=== PATIENT | female | born 1965 | race Caucasian/White ===

== ENCOUNTER 2019-04-27 08:43 | Day surgery (SDC) | payer MEDICARE, MEDICAID, SELFPAY ==
[2019-04-26 12:15] VITALS: BMI 23.0
[2019-04-27 09:30] VITALS: BP 158/102; PULSE 98; RESP 16; TEMP 36.3; O2SAT 99; BMI 22.9
[2019-04-27] MEDS: LACTATED RINGERS 1,000 ML 42 ML IV (09:38)
--- NOTE | 2019-04-27 09:54 | PM.PREOP ---
Pre-operative Note Interval Note History & Physical reviewed/Exam performed by Physician: Yes Changes to H&P: No
--- NOTE | 2019-04-27 09:55 | PM.OP.1 ---
Operative Date/Time/Diagnoses Date of procedure: 04/27/19 Time of procedure: 09:55 Pre-op diagnosis: Right second toe pain with retained screw Post-op diagnosis: same Procedure & Clinicians Procedure: Right second toe screw removal Same procedure as scheduled: Yes Indications: Right second toe pain with retained screw. Conservative measures failed to alleviate her pain and she wished to have surgical intervention at this time. Surgeon: Liseth Neri Click Yes if Unassisted: Yes Anesthesia Type: MAC +/- Operative Notes Closure Type: primary Specimen(s): none sent Estimated Blood Loss (mL): 10 Blood products transfused: none Procedure in detail: The patient was brought to the operating room and placed on the operating table in the supine position. Patient is well- padded and appropriately supported. After induction of anesthesia the right second toe was given local anesthesia. Then the foot and ankle were prepped and draped in the usual aseptic manner. Incision was made over the distal tip of the second toe. The incision was deepened through subcutaneous tissues all bleeders were cauterized and ligated as necessary. The screw was seen and some soft tissue was gently moved from the screw head to access it. The screw was removed in total and the tip inspected, no breakage noted. It was passed from the field. The area was irrigated with copious amounts normal sterile saline. Nylon suture used to close the skin. The foot was dressed with a lightly compressive sterile dressing. Patient was then placed in a postoperative shoe and transferred to PACU with vital signs stable. Complications: none Post-operative Condition: stable Disposition: PACU Plan for aftercare: Following a period of postoperative monitoring, the patient be discharged home on written and oral postoperative instructions including keeping the dressing dry and intact, avoiding significant ambulation on the foot, elevating the foot when seated home. DVT prevention techniques have been reviewed. Post op appt has been made for suture removal check.
[2019-04-27] MEDS: CEFAZOLIN 1 GM/50 ML FROZ.PIGGY IV (10:18)
--- NOTE | 2019-04-27 10:32 | SUR.OPER ---
Supine on padded OR bed, head on pillow, arms secured on padded arm boards at <90 degrees abduction, legs uncrossed, safety belt at thigh.
[2019-04-27] MEDS: BUPIVACAINE 0.5% (PF) VIAL 30 ML INJ (10:37)
[2019-04-27] MEDS: LIDOCAINE 2% INJ MDV 20 ML INJ (10:37)
[2019-04-27 11:12] VITALS: BP 152/99; PULSE 86; RESP 16; TEMP 36.6; O2SAT 98
[2019-04-27 11:25] VITALS: BP 162/99; PULSE 76; RESP 15; TEMP 36.3; O2SAT 98
== END 2019-04-27 11:30 | disposition home or self-care (01) ==
LOC: OR 08:45
PROVIDERS: PCP Family Medicine; Visit Provider Podiatrist
PROC: (CPT 20680; principal; 2019-04-27 10:00)
DX: T84.84XA Pain due to internal orthopedic prosthetic devices, implants and grafts, initial encounter (principal); G57.91 Unspecified mononeuropathy of right lower limb; M20.41 Other hammer toe(s) (acquired), right foot
CPT/HCPCS: 20680; J2250; J2704; J3010

== ENCOUNTER 2022-03-11 09:24 | Emergency (ER) | payer MEDICARE, MEDICAID, SELFPAY ==
[2022-03-11] VITALS (22 sets, daily range): BP systolic 132–198; BP diastolic 69–101; PULSE 72–103; RESP 12–24; TEMP 36.3; O2SAT 94–97; BMI 23.0
--- NOTE | 2022-03-11 | DI.US.S_ITS ---
PROCEDURE: US ABDOMEN LIMITED INDICATIONS: EPIGASTRIC PAIN TECHNIQUE: Real-time scanning was performed of the abdominal and retroperitoneal organs, with image documentation. COMPARISON: None. FINDINGS: Liver: Liver demonstrates increased size with increased echogenicity. Gallbladder: Status post cholecystectomy. Biliary ducts: Intrahepatic bile ducts are non-dilated. Extrahepatic bile duct caliber measures 11 mm. A nonshadowing hyperechoic focus is noted in the distal common duct. It is possible this is a small stone but is nonobstructing. Normal is 6-7 mm or less in diameter, or 10 mm or less post-cholecystectomy. Pancreas: Visualized portions of the pancreas are sonographically normal. Spleen: Spleen is normal in size and homogeneous in echotexture. IMPRESSION: 1. Hepatic steatosis and hepatomegaly. 2. Status post cholecystectomy. 3. A nonshadowing hyperechoic focus in the distal common bile duct is questionably a small stone but does not cause obstruction. Dictated by: Gil Steinberg M.D. on 03/11/2022 at 11:14 Approved by: Gil Steinberg M.D. on 03/11/2022 at 11:17
--- NOTE | 2022-03-11 09:31 | ED_ITS ---
HPI - Abdominal Pain General Chief Complaint: Abdominal Pain Stated Complaint: Abd pain x 3 days Time Seen by Provider: 03/11/22 09:30 History of Present Illness HPI narrative: Patient is a 56-year-old female history of alcohol abuse, pancreatitis hypertension chronic back pain presenting today with 3-4 days epigastric pain. She states she feels nauseous she has been vomiting. She denies any diarrhea. No fever chills. She says pain goes right through to her back. She denies any chest pain or shortness of breath. Related Data Home Medications Medication Instructions Recorded Confirmed ibuprofen 200 mg tablet 200 mg PO PRN PRN Pain (Scale 03/23/17 04/27/19 Score 1-3) ##0 naproxen sodium 220 mg tablet 2 tab PO QDAYP PRN Pain (Scale 04/13/17 04/27/19 (Aleve) Score 1-3) ##0 nitroglycerin 0.4 mg sublingual 0.4 mg sublingual PRN PRN Chest 04/13/17 04/27/19 tablet (Nitrostat) Pain ##0 omeprazole 20 mg capsule,delayed 20 mg PO QDAY ##0 04/13/17 release gabapentin 600 mg tablet 600 mg PO TID 04/27/19 04/27/19 lisinopril 10 mg tablet 10 mg PO DAILY 04/27/19 04/27/19 multivitamin-ferrous 1 tab PO DAILY 04/27/19 04/27/19 fumarate-folic acid 18 mg-400 mcg tablet (Multi-Day with Iron) Previous Rx's Medication Instructions Recorded hydrocodone 5 mg-acetaminophen 325 1 tab PO Q6H PRN pain #10 tabs 03/11/22 mg tablet omeprazole 20 mg capsule,delayed 20 mg PO DAILY #30 caps 03/11/22 release ondansetron 4 mg disintegrating 4 mg PO Q8H PRN nausea and 03/11/22 tablet vomiting #10 tabs Allergies Allergy/AdvReac Type Severity Reaction Status Date / Time No Known Drug Allergies Allergy Verified 04/27/19 09:25 Review of Systems Review of Systems Narrative: GENERAL: Denies chills, fatigue, malaise, fever, sweats, travel HEENT: Denies sinus pain, ear pain, sore throat, difficulty swallowing, neck p ain RESPIRATORY: Denies dyspnea, cough, wheezing, hemoptysis, sputum. CARDIOVASCULAR: Denies chest pain, palpitations, orthopnea, edema GASTROINTESTINAL: See HPI : Denies dysuria, frequency, incontinence, hematuria, urinary retention, flank pain. MUSCULOSKELETAL: Denies weakness, joint pain, or bony pain SKIN: No rash, no erythema, no pruritus NEUROLOGIC: Denies weakness, dizziness, headache, numbness, change in speech, confusion PSYCHIATRIC: No concerning psychosocial issues. 12 point review of systems is negative except for those stated above and HPI Patient History Medical History (Updated 03/11/22 @ 16:17 by Yessica Acharya DO) Alcoholic hepatitis Anxiety C. difficile colitis (~2016) Chest pain Chronic back pain Current every day smoker Depression Encephalopathy (~2015) Episode of syncope (~2015) ETOH abuse GERD (gastroesophageal reflux disease) Hepatitis C HTN (hypertension) Hyponatremia Incontinence Migraines Miscarriage Normocytic anemia Numbness and tingling Pancreatitis Seizures Thrombocytopenia Surgical History (Updated 09/26/20 @ 08:48 by [employer] [facility]) History of back surgery History of lumbar fusion (04/19/17) History of right oophorectomy Hx of appendectomy Hx of cholecystectomy Hx of hernia repair Hx of laminectomy (~2015) S/P insertion of spinal cord stimulator Social History household members: significant other Smoking Status: Current every day smoker alcohol intake: current Smoking Status: Current every day smoker Exam Initial Vital Signs Initial Vital Signs: Vital Signs Pulse Rate 103 H 03/11/22 09:34 Pulse Oximetry 96 03/11/22 09:34 GENERAL: 56-year-old female appears older than stated age and in discomfort HEENT: Head atraumatic,EOMI, pupils reactive, face symmetric, moist mucous membranes CARDIOVASCULAR: Regular rate and rhythm without murmurs, rubs or gallops. RESPIRATORY: Breath sounds equal bilaterally, no wheezes rales or rhonchi. ABDOMEN: Soft, tender epigastric region and right upper quadrant EXTREMITIES: Normal range of motion, no clubbing or edema. Neurovascularly intact NEUROLOGICAL: Alert and oriented x4.Normal gait and speech. SKIN: Warm, dry, no laceration, no petechiae, no rashes or lesions. Course Orders Ordered: ED Orders 03/11/22 09:37 EKG-12 Lead Stat 03/11/22 09:58 Complete Blood Count AUTO DIFF Stat Comprehensive Metabolic Panel Stat ETOH [Ethanol (ETOH)] Stat Lipase Stat Partial Thromboplastin Time Stat Prothrombin Time INR Stat Troponin & CK Cardiac Panel Stat 03/11/22 10:02 COVID19 -Nasal RAPID/Pre-Proc Stat 03/11/22 11:58 CT abdomen pelvis w con Stat 03/11/22 12:30 Urine Microscopic Stat Discontinued Medications Hydromorphone HCl (Hydromorphone 0.5 Mg Inj) 0.5 mg IV NOW ONE Stop: 03/11/22 09:45 Last Admin: 03/11/22 09:51 Dose: 0.5 mg Documented By: BS Hydromorphone HCl (Hydromorphone 0.5 Mg Inj) 0.5 mg IV NOW ONE Stop: 03/11/22 11:50 Last Admin: 03/11/22 11:57 Dose: 0.5 mg Documented By: SANAZ Sodium Chloride (Normal Saline 0.9%) 1,000 mls @ 1,000 mls/hr IV BOLUS ONE Stop: 03/11/22 10:43 Last Infusion: 03/11/22 10:53 Dose: 0 mls/hr Documented By: Admin: 03/11/22 09:51 Dose: 1,000 mls/hr Documented By: BS POTASSIUM CHLORIDE IN WATER (Potassium Cl 10 Meq/100 Ml Tamia) 10 meq in 100 mls @ 100 mls/hr IV Q1H JOHN Stop: 03/11/22 14:29 Last Infusion: 03/11/22 15:57 Dose: 0 mls/hr Documented By: Admin: 03/11/22 14:44 Dose: 100 mls/hr Documented By: Infusion: 03/11/22 14:29 Dose: 100 mls/hr Documented By: Admin: 03/11/22 13:29 Dose: 100 mls/hr Documented By: Infusion: 03/11/22 12:58 Dose: 100 mls/hr Documented By: Admin: 03/11/22 11:58 Dose: 100 mls/hr Documented By: Infusion: 03/11/22 11:55 Dose: 100 mls/hr Documented By: Admin: 03/11/22 10:55 Dose: 100 mls/hr Documented By: BS Pantoprazole Sodium (Pantoprazole 40 Mg Vial) 40 mg IV NOW ONE Stop: 03/11/22 09:41 Last Admin: 03/11/22 09:51 Dose: 40 mg Documented By: BS Vital Signs Vital signs: Vital Signs - 8 hr 03/11/22 10:30 03/11/22 10:31 03/11/22 10:31 Pulse Rate 87 80 Respiratory Rate Blood Pressure 132/69 Pulse Oximetry 95 96 03/11/22 11:00 03/11/22 11:01 03/11/22 11:01 Pulse Rate 89 86 Respiratory Rate 22 24 Blood Pressure 148/77 H Pulse Oximetry 95 96 03/11/22 11:30 03/11/22 11:30 03/11/22 12:00 Pulse Rate 85 89 Respiratory Rate 24 15 Blood Pressure 137/86 Pulse Oximetry 96 96 03/11/22 12:04 03/11/22 12:04 03/11/22 12:30 Pulse Rate 81 Respiratory Rate 14 Blood Pressure 139/80 172/81 H Pulse Oximetry 95 03/11/22 12:30 03/11/22 13:00 03/11/22 13:16 Pulse Rate 79 74 Respiratory Rate 18 12 Blood Pressure 152/80 H Pulse Oximetry 97 96 03/11/22 13:16 03/11/22 13:30 03/11/22 13:30 Pulse Rate 72 75 Respiratory Rate 20 14 Blood Pressure 139/81 Pulse Oximetry 96 94 03/11/22 14:00 03/11/22 14:01 03/11/22 14:01 Pulse Rate Respiratory Rate Blood Pressure 198/101 H Pulse Oximetry 94 95 03/11/22 14:16 03/11/22 14:16 03/11/22 14:30 Pulse Rate 76 Respiratory Rate Blood Pressure 165/90 H 169/82 H Pulse Oximetry 96 03/11/22 14:30 03/11/22 15:00 03/11/22 15:00 Pulse Rate 88 88 Respiratory Rate Blood Pressure 156/97 H Pulse Oximetry 96 95 03/11/22 15:30 03/11/22 16:00 Pulse Rate 89 89 Respiratory Rate 24 24 Blood Pressure 156/98 H Pulse Oximetry 96 MDM - Abdominal Pain Lab Data Result diagrams: 03/11/22 09:58 03/11/22 09:58 Labs: Lab Results 03/11/22 03/11/22 03/11/22 Range/Units 09:58 09:58 09:58 WBC 7.5 (4.5-11.0) X10^3/uL RBC 3.26 L (4.0-5.2) X10^6/uL Hgb 10.5 L (12.0-16.0) g/dL Hct 30.8 L (36-46) % MCV 94.3 (80-100) fL MCH 32.3 (26-34) PG MCHC 34.3 (30-36) % RDW 15.4 H (11.6-14.8) % Plt Count 219 (150-400) X10^3/uL Neut % (Auto) 62.5 (50-75) % Lymph % (Auto) 24.0 L (25-40) % [place] % (Auto) 11.4 (3-14) % Eos % (Auto) 1.4 L (2-4) % Baso % (Auto) 0.7 (0-2) % Neut # (Auto) 4700 (3465-0645) /uL Lymph # (Auto) 1800 (4933-5531) /uL [place] # (Auto) 900 (0-900) /uL Eos # (Auto) 100 (0-450) /uL Baso # (Auto) 100 (0-100) /uL PT 10.1 (10.1-12.7) SECONDS INR 0.9 (0.9-1.3) APTT 33 (26.4-36.2) SECONDS Sodium 138 (137-145) mmol/L Potassium 2.7 L* (3.4-5.1) mmol/L Chloride 100 (98-107) mmol/L Carbon Dioxide 28 (22-32) mmol/L BUN 11 (7-17) mg/dL Creatinine 0.90 (0.52-1.04) mg/dL Estimated GFR > 60 (>60) mL/min BUN/Creatinine Ratio 12.2 (6-22) Glucose 125 H (70-100) mg/dL Calcium 9.3 (8.4-10.2) mg/dL Total Bilirubin 0.1 L (0.2-1.3) mg/dL AST 180 H (14-36) IU/L ALT 79 H (<35) IU/L Alkaline Phosphatase 74 (38-126) U/L Total Creatine Kinase (30-135) U/L CK-MB (CK-2) CK-MB (CK-2) Rel Index Troponin I (0.01-0.034) ng/mL Total Protein 6.8 (6.3-8.2) g/dL Albumin 4.2 (3.5-5.0) g/dL Globulin 2.6 (1.7-4.1) g/dL Albumin/Globulin Ratio 1.6 (1.0-2.8) Lipase 66 (23-300) U/L Urine RBC (0-5/HPF) Urine WBC (0-5/HPF) Ur Squamous Epith Cells (0-5/HPF) Urine Bacteria (None) Ur Culture Indicated? Ethyl Alcohol ( - 10) mg/dL SARS-CoV-2 (PCR) (Negative) 03/11/22 03/11/22 03/11/22 Range/Units 09:58 10:02 12:30 WBC (4.5-11.0) X10^3/uL RBC (4.0-5.2) X10^6/uL Hgb (12.0-16.0) g/dL Hct (36-46) % MCV (80-100) fL MCH (26-34) PG MCHC (30-36) % RDW (11.6-14.8) % Plt Count (150-400) X10^3/uL Neut % (Auto) (50-75) % Lymph % (Auto) (25-40) % [place] % (Auto) (3-14) % Eos % (Auto) (2-4) % Baso % (Auto) (0-2) % Neut # (Auto) (7800-3331) /uL Lymph # (Auto) (6308-0647) /uL [place] # (Auto) (0-900) /uL Eos # (Auto) (0-450) /uL Baso # (Auto) (0-100) /uL PT (10.1-12.7) SECONDS INR (0.9-1.3) APTT (26.4-36.2) SECONDS Sodium (137-145) mmol/L Potassium (3.4-5.1) mmol/L Chloride (98-107) mmol/L Carbon Dioxide (22-32) mmol/L BUN (7-17) mg/dL Creatinine (0.52-1.04) mg/dL Estimated GFR (>60) mL/min BUN/Creatinine Ratio (6-22) Glucose (70-100) mg/dL Calcium (8.4-10.2) mg/dL Total Bilirubin (0.2-1.3) mg/dL AST (14-36) IU/L ALT (<35) IU/L Alkaline Phosphatase (38-126) U/L Total Creatine Kinase 45 (30-135) U/L CK-MB (CK-2) TNP CK-MB (CK-2) Rel Index TNP Troponin I < 0.012 (0.01-0.034) ng/mL Total Protein (6.3-8.2) g/dL Albumin (3.5-5.0) g/dL Globulin (1.7-4.1) g/dL Albumin/Globulin Ratio (1.0-2.8) Lipase (23-300) U/L Urine RBC 0-1/hpf (0-5/HPF) Urine WBC None seen (0-5/HPF) Ur Squamous Epith Cells 0-1 /hpf (0-5/HPF) Urine Bacteria None seen (None) Ur Culture Indicated? Cult not indicated Ethyl Alcohol 200 H ( - 10) mg/dL SARS-CoV-2 (PCR) Negative (Negative) Point of care testing: Urine Dip Bedside Urine Glucose Negative Bedside Urine Bilirubin - Negative Bedside Urine Ketone - Negative Urine Specific [place] 1.010 Bedside Urine Occult Blood ++ Bedside Urine pH 6.0 Bedside Urine Protein - Negative Bedside Urine Urobilinogen - Negative Bedside Urine Nitrite - Negative Bedside Urine Leukocytes - Negative Esterase Imaging Data US - abdomen: Radiologist's Impression: Signed Patient: Patricia Rincon MR#: [id number] : 1965 Acct:[id number] Age/Sex: 56 / F Date of Service: 03/11/22 Loc: ED Accession Number: [id number] ?? Procedure: US abdomen limited Ordering Provider: Yessica Acharya D.O. PROCEDURE:? US ABDOMEN LIMITED ? INDICATIONS:? EPIGASTRIC PAIN ? TECHNIQUE:? Real-time scanning was performed of the abdominal and retroperitoneal organs, with image documentation.? ? COMPARISON:? None. ? FINDINGS:? ? Liver:? Liver demonstrates increased size with increased echogenicity. ? Gallbladder:? Status post cholecystectomy.? ? Biliary ducts:? Intrahepatic bile ducts are non-dilated.? Extrahepatic bile duct caliber measures 11 mm.? A nonshadowing hyperechoic focus is noted in the distal common duct.? It is possible this is a small stone but is nonobstructing.? Normal is 6-7 mm or less in diameter, or 10 mm or less post-cholecystectomy.? ? Pancreas:? Visualized portions of the pancreas are sonographically normal.? ? Spleen:? Spleen is normal in size and homogeneous in echotexture.? ? IMPRESSION:? 1. Hepatic steatosis and hepatomegaly. 2. Status post cholecystectomy. 3. A nonshadowing hyperechoic focus in the distal common bile duct is questionably a small stone but does not cause obstruction.? Dictated by: Gil Steinberg M.D. on 03/11/2022 at 11:14 ? ? Approved by: Gil Steinberg M.D. on 03/11/2022 at 11:17 ? CT scan - abdomen/pelvis: Radiologist's Impression: [address] [place] [address] CT Scan Report Signed Patient: Patricia Rincon MR#: [id number] : 1965 Acct:[id number] Age/Sex: 56 / F Date of Service: 03/11/22 Loc: ED Accession Number: [id number] ?? Procedure: CT abdomen pelvis w con Ordering Provider: Yessica Acharya D.O. PROCEDURE:? CT ABDOMEN PELVIS W CON ? INDICATIONS:? severe pain probable CBD stone ? TECHNIQUE:? After the administration of oral and intravenous contrast, axial sections were acquired from the lung bases to the pubic symphysis.? Coronal and sagittal reformats were performed.? For radiation dose reduction, the following was used:? automated exposure control, adjustment of mA and/or kV according to patient size.? ? COMPARISON:[facility], US, US ABDOMEN LIMITED, 01/09/2021, 7:51.? [facility], CT, CT ABDOMEN PELVIS WITH CONTRAST, 04/13/2020, 11:09.? [facility], CT, CT ANGIO CHEST PE, 04/05/2021, 21:59. ? FINDINGS: ? Image quality:? Excellent.? ? Lung bases:? Lung bases are clear.? Heart size is normal. ? Solid organs:? Liver:? The liver has no mass or intrahepatic biliary ductal dilatation.? Liver density is decreased consistent with hepatic steatosis.? The portal vein and hepatic veins are patent. Biliary: Status post cholecystectomy.? The common bile duct measures 1.2 cm, this is unchanged compared to a remote ultrasound on 01/09/2021 when it measured 1.35 cm.? No gallstone is identified within the common bile duct.? Pancreas: The pancreas has no mass or ductal dilatation. There is no surrounding inflammation. Spleen: Normal size. There are no masses. Adrenals: No hypertrophy or nodules. Kidneys: No obstructive calculus or hydronephrosis.? No solid mass. No cystic mass. ? Peritoneum and bowel:? The distal esophagus and stomach are normal.? The small bowel has a normal caliber and appearance. The terminal ileum is normal. The large bowel has a normal caliber and appearance.? The appendix is not visualized, status post appendectomy. ?No free fluid or air.? ? Nodes and vessels:? No retroperitoneal or mesenteric adenopathy by size criteria.? The aorta has atherosclerosis with no aneurysmal dilatation.? ? Miscellaneous:? No abdominal wall mass or hernia. ? PELVIS:? Genitourinary:? The bladder is empty. ? Bones:? No suspicious bony lesions.? No vertebral body compression fractures.? ? IMPRESSION: 1. No CT evidence of cholelithiasis.? Additionally the common bile duct diameter is unchanged compared to a remote ultrasound on 01/09/2021 and there is no intrahepatic biliary ductal dilatation or pancreatic ductal dilatation. 2. Hepatic steatosis.? ? Dictated by: Gil Steinberg M.D. on 03/11/2022 at 12:53 ? ? Approved by: Gil Steinberg M.D. on 03/11/2022 at 12:59 ? ECG Data Interpretation: Normal sinus rhythm rate 89 IL interval 168 QRS 94 QTC 469 MDM Narrative Medical decision making narrative: Patient has severe epigastric pain, she is post cholecystectomy and is found to have a non obstructive common bile duct stone. Blood work is actually overall reassuring no elevated bilirubin or LFTs. She is found to have alcohol level of 200 patient adamantly denies that she had anything to drink today she did wash her mouth out with with drain she denies drinking any of it. States that she did drink alcohol yesterday. She clearly has been vomiting for multiple days her potassium is low. It is replaced. He is tolerating oral fluid and food. Discussion with Dr. Zapien, who states no need for any sort of surgery at this time recommend outpatient follow-up. I suspect that the nonocclusive CBD stone is probably the cause of her pain whenever is moving. She is not shaky or having tremors or signs of alcohol withdrawal. I suspect that she did drink alcohol although she denies it. A level is 200 Discharge Plan Departure Patient Disposition: Home Clinical Impression: Gastritis, Choledocholithiasis, Acute hypokalemia Instructions: DI for Gallstones, DI for Gastritis Activity Restrictions/Additional Instructions: *You have been diagnosed with gastritis, common bile duct stone, low potassium *What to do: At this time you have a call a bile duct stone which is not causing obstruction but may be contributing to your pain. You will need follow- up with surgery and GI. Increase fluid intake as tolerated. Take nausea medication as directed *Continue to take medications as directed Zofran 4 mg a every 8 hours if needed for nausea vomiting [place] 1 tablet every 6 hours if needed for severe pain *Follow up with your primary care provider in 2-3 days or call [phone] *Return to ER if you should have increase in pain, persistent vomiting, fever or any new, worsening or concerning symptoms CONTROLLED SUBSTANCE DISCHARGE (Narcotoic/benzodiazepine/Flexeril/Phenergan) 1. You have been prescribed narcotic medications, it does have acetaminophen/Tylenol/paracetamol in it, DO NOT TAKE MORE THAN 4,00mg in 24 hours of Tylenol. TRAMADOL DOES NOT CONTAIN TYLENOL 2. Please understand that we cannot provide further refills of narcotics, benzodiazepines or controlled substances through the ED and her pain management will need to be through your provider. 3. While on these medications you cannot drive or operate heavy machinery. 4. You cannot sign legal documents or perform any duties such as this. 5. As long as you're taking opiate pain medications he should also be taking a stool softener such as Colace, Dulcolax, MiraLAX or prune juice, to help avoid constipation. Prescriptions: New hydrocodone-acetaminophen 5-325 mg tablet 1 tab PO Q6H PRN (Reason: pain) Qty: 10 0RF ondansetron 4 mg tablet,disintegrating 4 mg PO Q8H PRN (Reason: nausea and vomiting) Qty: 10 0RF omeprazole 20 mg capsule,delayed release(DR/EC) 20 mg PO DAILY Qty: 30 0RF No Action ibuprofen 200 MG tablet 200 mg PO PRN PRN (Reason: Pain (Scale Score 1-3)) Qty: 0 omeprazole 20 MG capsule,delayed release(DR/EC) 20 mg PO QDAY Qty: 0 naproxen sodium [Aleve] 220 MG tablet 2 tab PO QDAYP PRN (Reason: Pain (Scale Score 1-3)) Qty: 0 nitroglycerin [Nitrostat] 0.4 MG tablet, sublingual 0.4 mg Sublingual PRN PRN (Reason: Chest Pain) Qty: 0 Label Comments: pt reports has never had to use it at this time gabapentin 600 mg Tablet 600 mg PO TID lisinopril 10 mg Tablet 10 mg PO DAILY Multi-Day with Iron 18-400 mg-mcg Tablet 1 tab PO DAILY Referrals: Leonie Perez DO [Primary Care Provider] - Visit Report Forms: Patient Portal/API
[2022-03-11] MEDS: SODIUM CHLORIDE 0.9% 1,000 ML 1000 ML IV (09:51)
[2022-03-11] MEDS: PANTOPRAZOLE 40 MG VIAL IV (09:51)
[2022-03-11] MEDS: HYDROMORPHONE 0.5 MG INJ IV ×2 (09:51→11:57)
[2022-03-11 10:07] LABS: Add Manual Diff / Slide Review NO; Basophils Absolute Auto 100 /uL (0-100); Basophils Percent Auto 0.7 % (0-2); Eosinophils Absolute Auto 100 /uL (0-450); Eosinophils Percent Auto 1.4 % (2-4); Hematocrit 30.8 % (36-46); Hemoglobin 10.5 g/dL (12.0-16.0); Lymphocytes Absolute Auto 1800 /uL (1100-4500); Mean Corpuscular HGB Conc 34.3 % (30-36); Mean Corpuscular Hemoglobin 32.3 PG (26-34); Mean Corpuscular Volume 94.3 fL (80-100); Monocytes Absolute Auto 900 /uL (0-900); Monocytes Percent Auto 11.4 % (3-14); Neutrophils Absolute Auto 4700 /uL (1500-7000); Neutrophils Percent Auto 62.5 % (50-75); Platelet Count 219 X10^3/uL (150-400); Red Blood Cell Count 3.26 X10^6/uL (4.0-5.2); Red Cell Distribution Width 15.4 % (11.6-14.8); White Blood Cell Count 7.5 X10^3/uL (4.5-11.0)
[2022-03-11 10:17] LABS: INR 0.9 (0.9-1.3); Prothrombin Time 10.1 SECONDS (10.1-12.7)
[2022-03-11 10:20] LABS: PTT Partial Thromboplastin Tim 33 SECONDS (26.4-36.2)
[2022-03-11 10:22] LABS: Alanine Aminotransferase 79 IU/L (<35); Albumin 4.2 g/dL (3.5-5.0); Albumin Globulin Ratio 1.6 (1.0-2.8); Alkaline Phosphatase 74 U/L (38-126); Aspartate Aminotransferase 180 IU/L (14-36); BUN Creatinine Ratio 12.2 (6-22); Bilirubin Total 0.1 mg/dL (0.2-1.3); Blood Urea Nitrogen 11 mg/dL (7-17); Calcium 9.3 mg/dL (8.4-10.2); Carbon Dioxide 28 mmol/L (22-32); Chloride 100 mmol/L (98-107); Estimated Glomerular Filt Rate > 60 mL/min (>60); Globulin 2.6 g/dL (1.7-4.1); Glucose 125 mg/dL (70-100); HEMOLYSIS < 15 (0-50); Lipase 66 U/L (23-300); Sodium 138 mmol/L (137-145); Total Protein 6.8 g/dL (6.3-8.2)
[2022-03-11 10:23] LABS: COVID19 -Nasal RAPID Negative (Negative)
[2022-03-11 10:23] LABS: Creatine Kinase 45 U/L (30-135); Ethanol (ETOH) 200 mg/dL
[2022-03-11 10:26] LABS: Potassium 2.7 mmol/L (3.4-5.1)
[2022-03-11 10:34] LABS: Troponin I < 0.012 ng/mL (0.01-0.034)
[2022-03-11] MEDS: POTASSIUM CHLORIDE IN WATER 10 MEQ/100 ML PIGGYBACK 100 MEQ IV ×4 (10:55→14:44)
--- NOTE | 2022-03-11 11:58 | DI.CT.S_ITS ---
PROCEDURE: CT ABDOMEN PELVIS W CON INDICATIONS: severe pain probable CBD stone TECHNIQUE: After the administration of oral and intravenous contrast, axial sections were acquired from the lung bases to the pubic symphysis. Coronal and sagittal reformats were performed. For radiation dose reduction, the following was used: automated exposure control, adjustment of mA and/or kV according to patient size. COMPARISON:[facility], US, US ABDOMEN LIMITED, 01/09/2021, 7:51. [facility], CT, CT ABDOMEN PELVIS WITH CONTRAST, 04/13/2020, 11:09. [facility], CT, CT ANGIO CHEST PE, 04/05/2021, 21:59. FINDINGS: Image quality: Excellent. Lung bases: Lung bases are clear. Heart size is normal. Solid organs: Liver: The liver has no mass or intrahepatic biliary ductal dilatation. Liver density is decreased consistent with hepatic steatosis. The portal vein and hepatic veins are patent. Biliary: Status post cholecystectomy. The common bile duct measures 1.2 cm, this is unchanged compared to a remote ultrasound on 01/09/2021 when it measured 1.35 cm. No gallstone is identified within the common bile duct. Pancreas: The pancreas has no mass or ductal dilatation. There is no surrounding inflammation. Spleen: Normal size. There are no masses. Adrenals: No hypertrophy or nodules. Kidneys: No obstructive calculus or hydronephrosis. No solid mass. No cystic mass. Peritoneum and bowel: The distal esophagus and stomach are normal. The small bowel has a normal caliber and appearance. The terminal ileum is normal. The large bowel has a normal caliber and appearance. The appendix is not visualized, status post appendectomy. No free fluid or air. Nodes and vessels: No retroperitoneal or mesenteric adenopathy by size criteria. The aorta has atherosclerosis with no aneurysmal dilatation. Miscellaneous: No abdominal wall mass or hernia. PELVIS: Genitourinary: The bladder is empty. Bones: No suspicious bony lesions. No vertebral body compression fractures. IMPRESSION: 1. No CT evidence of cholelithiasis. Additionally the common bile duct diameter is unchanged compared to a remote ultrasound on 01/09/2021 and there is no intrahepatic biliary ductal dilatation or pancreatic ductal dilatation. 2. Hepatic steatosis. Dictated by: Gil Steinberg M.D. on 03/11/2022 at 12:53 Approved by: Gil Steinberg M.D. on 03/11/2022 at 12:59
[2022-03-11 13:29] LABS: Bacteria Urine None Seen; Culture Indicated Urine Cult Not Indicated; RBC Urine 0-1/HPF (0-5/HPF); Squamous Epithelial Cell Urine 0-1 /HPF (0-5/HPF); WBC Urine None Seen (0-5/HPF)
== END 2022-03-11 16:22 | disposition home or self-care (01) ==
PROVIDERS: Emergency Provider Emergency Medicine; PCP Family Medicine
DX: K80.50 Calculus of bile duct without cholangitis or cholecystitis without obstruction (principal); E87.6 Hypokalemia; K29.70 Gastritis, unspecified, without bleeding; R11.2 Nausea with vomiting, unspecified; Z20.822 Contact with and (suspected) exposure to COVID-19
CPT/HCPCS: 74177; 76705; 80053; 80320; 81003; 81015; 82550; 83690; 84484; 85025; 85610; 85730; 87635; 93005; 93010; 96361; 96374; 96375; 96376; 99284; C9803; C9113; J1170

== ENCOUNTER 2023-06-14 10:52 | Emergency (ER) | payer MEDICARE, MEDICAID, SELFPAY ==
[2023-06-14 10:57] VITALS: BP 182/105; PULSE 98; RESP 14; TEMP 36.6; O2SAT 99; BMI 21.6
--- NOTE | 2023-06-14 11:20 | DI.RAD.S_ITS ---
PROCEDURE: XR ACUTE ABDOMEN SERIES INDICATIONS: generalized abd pain w/ decreased bm TECHNIQUE: One view chest and two views of the abdomen were acquired. COMPARISON: CT, CT ABDOMEN PELVIS WITH CONTRAST, 08/03/2017, 5:50. [facility], , ABDOMEN ACUTE SERIES, 10/12/2015, 17:42. FINDINGS: Surgical changes and devices: Lumbar fixation changes are present. Chest: Lungs are clear. Heart size is normal. No pleural effusions. No pneumoperitoneum. Abdomen: Bowel gas pattern is nonobstructive. [id number] scattered stool.. No suspicious calcifications. Visualized solid organ contours appear normal. Bones: No suspicious bony lesions. IMPRESSION: Nonobstructive gas pattern with nnzn-al-[id number] stool. Dictated by: Gerri Gorman M.D. on 06/14/2023 at 13:33 Approved by: Gerri Gorman M.D. on 06/14/2023 at 13:33
--- NOTE | 2023-06-14 11:25 | PC.NURSE ---
ambulatory w/ walker to xray w/ tech
--- NOTE | 2023-06-14 11:27 | PC.NURSE ---
lab called to confirm receipt of lab work, per Maria Teresa in lab lab work being processed now
[2023-06-14 11:29] LABS: Add Manual Diff / Slide Review NO; Basophils Absolute Auto 100 /uL (0-100); Basophils Percent Auto 1.4 % (0-2); Eosinophils Absolute Auto 100 /uL (0-450); Eosinophils Percent Auto 1.2 % (2-4); Hematocrit 30.4 % (36-46); Hemoglobin 10.4 g/dL (12.0-16.0); Lymphocytes Absolute Auto 1900 /uL (1100-4500); Lymphocytes Percent Auto 25.6 % (25-40); Mean Corpuscular HGB Conc 34.1 % (30-36); Mean Corpuscular Hemoglobin 34.2 PG (26-34); Mean Corpuscular Volume 100.2 fL (80-100); Monocytes Absolute Auto 700 /uL (0-900); Monocytes Percent Auto 8.9 % (3-14); Neutrophils Absolute Auto 4700 /uL (1500-7000); Neutrophils Percent Auto 62.9 % (50-75); Platelet Count 334 X10^3/uL (150-400); Red Blood Cell Count 3.04 X10^6/uL (4.0-5.2); Red Cell Distribution Width 15.3 % (11.6-14.8); White Blood Cell Count 7.5 X10^3/uL (4.5-11.0)
--- NOTE | 2023-06-14 11:36 | PC.NURSE ---
provider at bedside for eval
[2023-06-14 11:40] VITALS: BP 198/98; PULSE 82; RESP 20; O2SAT 99
[2023-06-14 11:41] LABS: Alanine Aminotransferase 13 IU/L (<35); Albumin 3.7 g/dL (3.5-5.0); Albumin Globulin Ratio 1.3 (1.0-2.8); Alkaline Phosphatase 78 U/L (38-126); Aspartate Aminotransferase 30 IU/L (14-36); Bilirubin Total 0.2 mg/dL (0.2-1.3); Blood Urea Nitrogen 15 mg/dL (7-17); Carbon Dioxide 19 mmol/L (22-32); Chloride 103 mmol/L (98-107); Estimated Glomerular Filt Rate > 60 mL/min (>60); Globulin 2.9 g/dL (1.7-4.1); Glucose 91 mg/dL (70-100); HEMOLYSIS 35 (0-50); Lipase 36 U/L (23-300); Potassium 3.9 mmol/L (3.4-5.1); Sodium 132 mmol/L (137-145); Total Protein 6.6 g/dL (6.3-8.2)
--- NOTE | 2023-06-14 11:41 | PC.NURSE ---
provider notified of pt's current BP. RT at bedside for EKG now.
--- NOTE | 2023-06-14 11:43 | DI.CT.S_ITS ---
PROCEDURE: CT ABDOMEN PELVIS W CON INDICATIONS: Abdominal pain TECHNIQUE: After the administration of IV contrast, axial sections were acquired from the lung bases to the pubic symphysis. Coronal and sagittal reformats were performed. For radiation dose reduction, the following was used: automated exposure control, adjustment of mA and/or kV according to patient size. COMPARISON: [facility], CT, CT ABDOMEN PELVIS W CON, 03/11/2022, 12:41. [facility] Film, CT, CT CHEST ABDOMEN PELVIS WITH CONTRAST, 01/15/2022, 15:22. [facility], CR, XR ACUTE ABDOMEN SERIES, 06/14/2023, 11:25. FINDINGS: Image quality: There is artifact associated with the metallic hardware. Lung bases: Unremarkable. Heart: No significant findings. ABDOMEN: Liver: The left liver appears truncated, as before. Gallbladder: Cholecystectomy. Biliary ducts: Unremarkable. Pancreas: Unremarkable. Spleen: Unremarkable. Adrenal Glands: Unremarkable. Kidneys and Ureters: Unremarkable. Stomach and Bowel: Rectal wall thickening is seen. The more proximal colon is within normal limits. No dilated loops of small bowel are seen. The stomach is decompressed at the time of this study, limiting its evaluation. Peritoneum: No abnormal intraperitoneal fluid. No free air. Ventral Wall: No hernia. Abdominal Nodes: No retroperitoneal or mesenteric adenopathy by size criteria. Vessels: Aorta and inferior vena cava are normal in size. Atherosclerotic calcification is noted. PELVIS: Pelvic Organs: The uterus appears normal for age. No adnexal masses are seen. Bladder: Unremarkable. Pelvic Nodes: No enlarged lymph nodes. Miscellaneous: No inguinal hernias are seen. Bones: Lumbar postoperative and degenerative changes are seen. There is a bone harvesting site seen involving the posterior medial left iliac bone. IMPRESSION: Apparent rectal wall thickening is seen. Differential diagnosis includes artifact from collapse. Additional findings: Truncated appearing liver. Cholecystectomy Lumbar postoperative and degenerative change Dictated by: Casey Garza M.D. on 06/14/2023 at 12:51 Approved by: Casey Garza M.D. on 06/14/2023 at 12:55
--- NOTE | 2023-06-14 11:45 | PC.NURSE ---
pt currently refusing IV line placement.
[2023-06-14] MEDS: MAG HYDROX/ALUMINUM/SIMETH SUS 20 ML, LIDOCAINE VISCOUS 2% 15 ML PO (12:05)
[2023-06-14] MEDS: FAMOTIDINE 20 MG/2 ML VIAL 40 MG IV (12:06)
--- NOTE | 2023-06-14 12:30 | PC.NURSE ---
pt requesting to take her home oxy and gabapentin, per provider okay for pt to take
[2023-06-14 12:40] LABS: Bacteria Urine None Seen; RBC Urine None Seen (0-5/HPF); Squamous Epithelial Cell Urine None Seen (0-5/HPF); WBC Urine None Seen (0-5/HPF)
--- NOTE | 2023-06-14 13:17 | PC.NURSE ---
back from CT without issue
[2023-06-14 13:22] VITALS: BP 179/109; PULSE 74; RESP 18; O2SAT 96
--- NOTE | 2023-06-14 13:54 | ED.ABDPAIN ---
HPI - Abdominal Pain <Tammy Maldonado PA-C - Last Filed: 06/14/23 16:09> General Chief Complaint: Abdominal Pain Stated Complaint: abd pain T-5 Time Seen by Provider: 06/14/23 11:15 Source: patient Mode of arrival: Ambulatory History of Present Illness HPI narrative: 58-year-old female, current smoker with past medical history hypertension, chronic lower back pain, GERD presents to the ED with 5 days of epigastric pain. Patient states that her pain started spontaneously in the epigastric region, is now complaining of generalized abdominal pain. Patient denies fever, chills, nausea, vomiting, chest pain, shortness of breath, diarrhea, dysuria, lightheadedness, dizziness, syncope. Patient does complain of constipation over the past few days, states that she intermittently has constipation due to the medications she takes. Patient does take opioids for chronic back pain. Patient states that she has a history of GERD, however it has never been as severe as this episode. Patient states that her symptoms worsen with food. Patient has tried some [id number]-[id number] antacids with no relief. Patient endorses drinking alcohol, 2 drinks about 3 times a week. Patient smokes about a half a pack of cigarettes daily. Patient endorses smoking weed, denies any other drug use. Patient is status post cholecystectomy, appendectomy. Related Data Home Medications Medication Instructions Recorded Confirmed amlodipine 10 mg tablet 10 mg PO DAILY 06/14/23 06/14/23 ferrous sulfate 325 mg (65 mg 325 mg PO QAM 06/14/23 06/14/23 iron) tablet (FeroSul) gabapentin 600 mg tablet 1,200 mg PO 3XD 06/14/23 06/14/23 hydroxyzine HCl 25 mg tablet 25 mg PO BID PRN itch 06/14/23 06/14/23 indomethacin 25 mg capsule 25 mg PO BID PRN mild pain 06/14/23 06/14/23 magnesium oxide 400 mg (241.3 mg 400 mg PO DAILY 06/14/23 06/14/23 magnesium) tablet oxycodone-acetaminophen 7.5 mg-325 1 tab PO BID PRN moderate pain 06/14/23 06/14/23 mg tablet pantoprazole 40 mg tablet,delayed 40 mg PO BID 06/14/23 06/14/23 release potassium chloride 20 mEq 20 meq PO BID 06/14/23 06/14/23 tablet,extended release(part/cryst) spironolactone 50 mg tablet 50 mg PO DAILY 06/14/23 06/14/23 Previous Rx's Medication Instructions Recorded ondansetron 4 mg disintegrating 4 mg PO Q8H PRN nausea and 03/11/22 tablet vomiting #10 tabs Allergies Allergy/AdvReac Type Severity Reaction Status Date / Time No Known Drug Allergies Allergy Verified 06/14/23 11:06 Review of Systems <Tammy Maldonado PA-C - Last Filed: 06/14/23 16:09> Constitutional Constitutional: Denies chills, Denies fatigue, Denies fever(s), Denies frequent falls, Denies lethargy and Denies weakness Eyes Eyes: Denies change in vision, Denies eye discharge, Denies irritation and Denies loss of vision ENT Ears, Nose, Mouth, and Throat: Denies change in voice, Denies dizziness, Denies neck pain, Denies sore throat and Denies throat swelling Cardiovascular Cardiovascular: Denies chest pain, Denies irregular heart rhythm, Denies lightheadedness, Denies palpitations, Denies dyspnea, Denies dyspnea on exertion and Denies orthopnea Respiratory Respiratory: Denies cough, Denies dyspnea, Denies dyspnea on exertion and Denies wheezing Gastrointestinal Gastrointestinal: Reports abdominal pain, Denies change in bowel habits, Denies diarrhea, Denies nausea and Denies vomiting Musculoskeletal Musculoskeletal: Denies neck pain and Denies numbness Integumentary/Breasts Skin/Breast: Denies pruritus, Denies erythema, Denies rash and Denies wounds Neurologic Neurologic: Denies behavioral changes, Denies confusion, Denies dizziness, Denies frequent falls, Denies loss of vision, Denies numbness and Denies weakness Psychiatric Psychiatric: Denies anxiety, Denies behavioral changes, Denies confusion, Denies depression, Denies homicidal ideation and Denies suicidal ideation Endocrine Endocrine: Denies fatigue, Denies flushing and Denies palpitations Hematologic/Lymphatic Hematologic/Lymphatic: Denies easy bruising Allergic/Immunologic Allergic/Immunologic: Denies urticaria, Denies throat swelling and Denies wheezing Patient History <Tammy Maldonado PA-C - Last Filed: 06/14/23 16:09> Medical History Depression Anxiety Hyponatremia Normocytic anemia Thrombocytopenia ETOH abuse Chronic back pain Incontinence Miscarriage Alcoholic hepatitis C. difficile colitis (~2017) Hepatitis C Pancreatitis GERD (gastroesophageal reflux disease) Chest pain HTN (hypertension) Current every day smoker Seizures Episode of syncope (~2015) Encephalopathy (~2016) Migraines Numbness and tingling Surgical History S/P insertion of spinal cord stimulator History of back surgery History of lumbar fusion (04/19/17) Hx of laminectomy (~2015) History of right oophorectomy Hx of hernia repair Hx of appendectomy Hx of cholecystectomy Social History household members: significant other Smoking Status: Current every day smoker alcohol intake: current Smoking Status: Current every day smoker alcohol intake frequency: 0-2 drinks per day Substance Use Type: marijuana Exam <Tammy Maldonado PA-C - Last Filed: 06/14/23 16:09> Narrative Exam Narrative: Const General:?cooperative, healthy appearing and comfortable [facility] Head:?normal to inspection Ears:?hearing grossly normal bilaterally Nose:?external nose normal Face and sinus:?normal facial exam and sinuses nontender Mouth:?oral mucosae normal Throat:?posterior oropharynx normal Eyes General:?appearance normal, both eyes and all related structures Neck Neck:?normal visual inspection and no lymphadenopathy noted Resp Effort & Inspection:?normal respiratory effort Auscultation:?clear to auscultation bilaterally Cardio Rate:?regular rate Rhythm:?regular rhythm GI Abdomen is soft, nondistended. Abdomen is diffusely tender to palpation. There is no CVA tenderness. Neuro General:?patient alert, patient awake and patient oriented x3 Initial Vital Signs Initial Vital Signs: Vital Signs Temperature 97.8 F 06/14/23 10:57 Pulse Rate 98 H 06/14/23 10:57 Respiratory Rate 14 06/14/23 10:57 Blood Pressure 182/105 H 06/14/23 10:57 Pulse Oximetry 99 06/14/23 10:57 Oxygen Delivery Method Room Air 06/14/23 10:57 <Leonie Rodriguez MD - Last Filed: 06/16/23 07:21> Initial Vital Signs Initial Vital Signs: Vital Signs Temperature 97.8 F 06/14/23 10:57 Pulse Rate 98 H 06/14/23 10:57 Respiratory Rate 14 06/14/23 10:57 Blood Pressure 182/105 H 06/14/23 10:57 Pulse Oximetry 99 06/14/23 10:57 Oxygen Delivery Method Room Air 06/14/23 10:57 Course <Tammy Maldonado PA-C - Last Filed: 06/14/23 16:09> Orders Ordered: Discontinued Medications Al Hydrox/Mg Hydrox/Simethicone 20 ml/ Lidocaine HCl 15 ml 0 ml PO NOW ONE Stop: 06/14/23 11:44 Last Admin: 06/14/23 12:05 Dose: 35 ml Documented By: FABIANA Famotidine (Famotidine 20 Mg/2 Ml Vial) 40 mg IV NOW [facility] Last Admin: 06/14/23 12:06 Dose: 40 mg Documented By: FABIANA Ondansetron HCl (Ondansetron 4 Mg Odt) 4 mg PO NOW PRN PRN Reason: Nausea And Vomiting Ondansetron HCl (Ondansetron 4 Mg/2 Ml Inj) 4 mg IV NOW PRN PRN Reason: Nausea And Vomiting Vital Signs Vital signs: Vital Signs - 8 hr 06/14/23 10:57 06/14/23 11:40 06/14/23 13:22 Temperature 97.8 F Pulse Rate 98 H 82 74 Respiratory Rate 14 20 18 Blood Pressure 182/105 H 198/98 H 179/109 H Pulse Oximetry 99 99 96 Oxygen Delivery Method Room Air Room Air Room Air <Leonie Rodriguez MD - Last Filed: 06/16/23 07:21> Orders Ordered: Discontinued Medications Al Hydrox/Mg Hydrox/Simethicone 20 ml/ Lidocaine HCl 15 ml 0 ml PO NOW ONE Stop: 06/14/23 11:44 Last Admin: 06/14/23 12:05 Dose: 35 ml Documented By: FABIANA Famotidine (Famotidine 20 Mg/2 Ml Vial) 40 mg IV NOW [facility] Last Admin: 06/14/23 12:06 Dose: 40 mg Documented By: FABIANA Ondansetron HCl (Ondansetron 4 Mg Odt) 4 mg PO NOW PRN PRN Reason: Nausea And Vomiting Ondansetron HCl (Ondansetron 4 Mg/2 Ml Inj) 4 mg IV NOW PRN PRN Reason: Nausea And Vomiting Vital Signs Vital signs: Vital Signs - 8 hr 06/14/23 10:57 06/14/23 11:40 06/14/23 13:22 Temperature 97.8 F Pulse Rate 98 H 82 74 Respiratory Rate 14 20 18 Blood Pressure 182/105 H 198/98 H 179/109 H Pulse Oximetry 99 99 96 Oxygen Delivery Method Room Air Room Air Room Air MDM - Abdominal Pain <Hyma HESHAM Maldonado - Last Filed: 06/14/23 16:09> Lab Data 06/14/23 11:16 06/14/23 11:16 Labs: Lab Results 06/14/23 06/14/23 Range/Units 11:16 12:20 WBC 7.5 (4.5-11.0) X10^3/uL RBC 3.04 L (4.0-5.2) X10^6/uL Hgb 10.4 L (12.0-16.0) g/dL Hct 30.4 L (36-46) % MCV 100.2 H (80-100) fL MCH 34.2 H (26-34) PG MCHC 34.1 (30-36) % RDW 15.3 H (11.6-14.8) % Plt Count 334 (150-400) X10^3/uL Neut % (Auto) 62.9 (50-75) % Lymph % (Auto) 25.6 (25-40) % [place] % (Auto) 8.9 (3-14) % Eos % (Auto) 1.2 L (2-4) % Baso % (Auto) 1.4 (0-2) % Neut # (Auto) 4700 (7463-5601) /uL Lymph # (Auto) 1900 (2494-1950) /uL [place] # (Auto) 700 (0-900) /uL Eos # (Auto) 100 (0-450) /uL Baso # (Auto) 100 (0-100) /uL Sodium 132 L (137-145) mmol/L Potassium 3.9 (3.4-5.1) mmol/L Chloride 103 (98-107) mmol/L Carbon Dioxide 19 L (22-32) mmol/L BUN 15 (7-17) mg/dL Creatinine 0.79 (0.52-1.04) mg/dL Estimated GFR > 60 (>60) mL/min BUN/Creatinine Ratio 19.0 (6-22) Glucose 91 (70-100) mg/dL Calcium 9.0 (8.4-10.2) mg/dL Total Bilirubin 0.2 (0.2-1.3) mg/dL AST 30 (14-36) IU/L ALT 13 (<35) IU/L Alkaline Phosphatase 78 (38-126) U/L Total Protein 6.6 (6.3-8.2) g/dL Albumin 3.7 (3.5-5.0) g/dL Globulin 2.9 (1.7-4.1) g/dL Albumin/Globulin Ratio 1.3 (1.0-2.8) Lipase 36 (23-300) U/L Urine RBC None seen (0-5/HPF) Urine WBC None seen (0-5/HPF) Ur Squamous Epith Cells None seen (0-5/HPF) Urine Bacteria None seen (None) Point of care testing: Urine Dip Bedside Urine Glucose Negative Bedside Urine Bilirubin - Negative Bedside Urine Ketone - Negative Urine Specific [place] 1.000 Bedside Urine Occult Blood + Bedside Urine pH 7.0 Bedside Urine Protein - Negative Bedside Urine Urobilinogen - Negative Bedside Urine Nitrite - Negative Bedside Urine Leukocytes - Negative Esterase MDM Narrative Medical decision making narrative: 58-year-old female, current smoker with past medical history hypertension, chronic lower back pain, GERD presents to the ED with 5 days of epigastric pain. Concern for GERD versus gastritis versus peptic ulcer disease versus pancreatitis versus retained gallstone versus bowel obstruction versus constipation versus other intra-abdominal pathology versus other. Will obtain labs, EKG, chest x-ray, abdominal x-ray, labs, lipase, UA. Will give GI cocktail, Pepcid AC for symptoms. Will reassess. Will consider CT abdomen pelvis. Abdominal x-ray without acute findings. CT abdomen pelvis was performed that shows some rectal wall thickening and no other abnormalities. Ultrasound with no acute findings. Given that patient has a previous peptic ulcer diagnosis, patient's symptoms are likely related to the peptic ulcer. Patient also endorses a prior history of pancreatitis, however today CT and lipase do not indicate pancreatitis. Recommend continuing Pepcid AC twice a day. Recommend continuing omeprazole. Recommend lifestyle changes including abstaining from alcohol, spicy foods, greasy foods, other triggers. Recommend follow-up with Gastroenterology for further evaluation. ED return precautions discussed with patient. Patient verbalized understanding. Medical records reviewed: Yes <Leonie Rodriguez MD - Last Filed: 06/16/23 07:21> Lab Data Labs: Lab Results 06/14/23 06/14/23 Range/Units 11:16 12:20 WBC 7.5 (4.5-11.0) X10^3/uL RBC 3.04 L (4.0-5.2) X10^6/uL Hgb 10.4 L (12.0-16.0) g/dL Hct 30.4 L (36-46) % MCV 100.2 H (80-100) fL MCH 34.2 H (26-34) PG MCHC 34.1 (30-36) % RDW 15.3 H (11.6-14.8) % Plt Count 334 (150-400) X10^3/uL Neut % (Auto) 62.9 (50-75) % Lymph % (Auto) 25.6 (25-40) % [place] % (Auto) 8.9 (3-14) % Eos % (Auto) 1.2 L (2-4) % Baso % (Auto) 1.4 (0-2) % Neut # (Auto) 4700 (5433-7576) /uL Lymph # (Auto) 1900 (9015-4412) /uL [place] # (Auto) 700 (0-900) /uL Eos # (Auto) 100 (0-450) /uL Baso # (Auto) 100 (0-100) /uL Sodium 132 L (137-145) mmol/L Potassium 3.9 (3.4-5.1) mmol/L Chloride 103 (98-107) mmol/L Carbon Dioxide 19 L (22-32) mmol/L BUN 15 (7-17) mg/dL Creatinine 0.79 (0.52-1.04) mg/dL Estimated GFR > 60 (>60) mL/min BUN/Creatinine Ratio 19.0 (6-22) Glucose 91 (70-100) mg/dL Calcium 9.0 (8.4-10.2) mg/dL Total Bilirubin 0.2 (0.2-1.3) mg/dL AST 30 (14-36) IU/L ALT 13 (<35) IU/L Alkaline Phosphatase 78 (38-126) U/L Total Protein 6.6 (6.3-8.2) g/dL Albumin 3.7 (3.5-5.0) g/dL Globulin 2.9 (1.7-4.1) g/dL Albumin/Globulin Ratio 1.3 (1.0-2.8) Lipase 36 (23-300) U/L Urine RBC None seen (0-5/HPF) Urine WBC None seen (0-5/HPF) Ur Squamous Epith Cells None seen (0-5/HPF) Urine Bacteria None seen (None) Point of care testing: Urine Dip Bedside Urine Glucose Negative Bedside Urine Bilirubin - Negative Bedside Urine Ketone - Negative Urine Specific [place] 1.000 Bedside Urine Occult Blood + Bedside Urine pH 7.0 Bedside Urine Protein - Negative Bedside Urine Urobilinogen - Negative Bedside Urine Nitrite - Negative Bedside Urine Leukocytes - Negative Esterase Discharge Plan Departure Patient Disposition: Home Clinical Impression: Abdominal pain Qualifiers: Abdominal location: epigastric Qualified Code(s): R10.13 - Epigastric pain Instructions: DI for Abdominal Pain-Adult Activity Restrictions/Additional Instructions: Were evaluated in the ED today for abdominal pain. Your CT abdomen pelvis showed some thickening of the rectum, your ultrasound and x-ray were normal. Given that you have been previously diagnosed with a peptic ulcer, it is most likely the reason for your symptoms. Your CT and lipase did not indicate pancreatitis at this time. In order to prevent a recurrence of pancreatitis and to heal the ulcer, it is advised that you abstained from alcohol and spicy foods. You may take Pepcid AC twice a day, continue omeprazole as prescribed. Please follow-up with your manager sign as soon as possible for further evaluation. Return to the ED if you have worsening symptoms, persistent vomiting, fever, chills. Prescriptions: No Action ondansetron 4 mg tablet,disintegrating 4 mg PO Q8H PRN (Reason: nausea and vomiting) Qty: 10 0RF gabapentin 600 mg tablet 1,200 mg PO 3XD potassium chloride 20 mEq tablet,ER particles/crystals 20 meq PO BID magnesium oxide 400 mg (241.3 mg magnesium) tablet 400 mg PO DAILY amlodipine 10 mg tablet 10 mg PO DAILY pantoprazole 40 mg tablet,delayed release (DR/EC) 40 mg PO BID ferrous sulfate [FeroSul] 325 mg (65 mg iron) tablet 325 mg PO QAM indomethacin 25 mg capsule 25 mg PO BID PRN (Reason: mild pain) hydroxyzine HCl 25 mg tablet 25 mg PO BID PRN (Reason: itch) oxycodone-acetaminophen 7.5-325 mg tablet 1 tab PO BID PRN (Reason: moderate pain) spironolactone 50 mg tablet 50 mg PO DAILY Referrals: Bernie Elias MD [Primary Care Provider] - Stand Alone Forms: Patient Portal/API ED Sign-out <Leonie Rodriguez MD - Last Filed: 06/16/23 07:21> Cosign ED Attending Cosignature Attestation: I did not see this patient. I was available all times for consultation.
--- NOTE | 2023-06-14 14:11 | DI.US.S_ITS ---
PROCEDURE: US ABDOMEN LIMITED INDICATIONS: POSSIBLE CBD STONE TECHNIQUE: Real-time scanning was performed of the abdominal and retroperitoneal organs, with image documentation. COMPARISON: [facility], US, US ABDOMEN LIMITED, 03/11/2022, 10:13. [facility], CT, CT ABDOMEN PELVIS W CON, 06/14/2023, 13:13. FINDINGS: Liver: Liver is normal in size and demonstrates diffuse increased echotexture. Gallbladder: Surgically absent Biliary ducts: Intrahepatic bile ducts are non-dilated. Extrahepatic bile duct measures 11.1 mm. No common bile duct stones. Normal is 6-7 mm or less in diameter, or 10 mm or less post-cholecystectomy. Pancreas: Pancreatic tail is obscured by overlying bowel gas. Visualized portions of the pancreas are sonographically normal. Miscellaneous: No free abdominal fluid. IMPRESSION: 1. Dilated common bile duct, presumably secondary to cholecystectomy. No common bile duct stones are identified. 2. Diffusely increased hepatic echotexture. This finding is most likely secondary to hepatic fatty infiltration although other hepatocellular disease may have a similar appearance. Recommend clinical correlation. Dictated by: Meek Forde M.D. on 06/14/2023 at 14:51 Approved by: Meek Forde M.D. on 06/14/2023 at 15:11
[2023-06-14 16:07] VITALS: BP 182/110; PULSE 86; RESP 12; O2SAT 98
--- NOTE | 2023-06-14 16:09 | PC.NURSE ---
Patient in sweatshirt at the time of discharge. Asked patient if she ever had an IV placed today she stated NO. CLYDE Mancilla at bedside as well. Per chart appears IV was never removed. Called patient and she states oh shoot, I do, I forgot all about it. I will just take it out at home Encouraged patient to come back to hospital for removal of IV. Patient declined No its no big deal I will take it out myself
== END 2023-06-14 16:13 | disposition home or self-care (01) ==
PROVIDERS: Emergency Medicine; Emergency Provider Student in an Organized Health Care Education/Training Program; PCP Family Medicine
DX: R10.13 Epigastric pain (principal); Z79.899 Other long term (current) drug therapy
CPT/HCPCS: 36415; 74022; 74177; 76705; 80053; 81003; 81015; 83690; 85025; 87086; 93005; 93010; 96374; 99284; Q9967